=== PATIENT | female | born 1990 | race Caucasian/White ===

== ENCOUNTER 2016-07-16 20:38 | Emergency (ER) | payer OTHER ==
--- NOTE | ~2016-07-16 | CR63 ---
[facility] A Service of [facility] RADIOLOGY TEXT RESULTS PATIENT: ERWIN SSOA LOCATION: CFTX : 86 UNIT #: [id number] AGE: [address]: Uvaldo Adam MD SEX: F ORDER DR: [id number] [facility] [address] [place], [place] [address] [id number] E MR#: [id number] Acc #: [id number] NAME: ERWIN SOSA : 1990 SEX: F STUDY DATE/TIME: 07/16/2016 20:18 UNIT: [facility] ROOM: STUDY DESCRIPTION: CR Chest 2 View Attending Physician: Uvaldo Adam M.D. Ordering Physician: Uvaldo Adam M.D. Primary Care Physician: Julia Lees Aprn MEDICAL IMAGING REPORT This report is preliminary unless electronic signature is present EXAM 2 views chest HISTORY Back pain. 1 week. Cough, congestion, pain with cough. Smoking history 5 years plus. PA and lateral radiographs of the chest are presented. No comparisons. The bony structures are unremarkable. The heart and mediastinum are normal in size and contour. The lungs are well inflated and clear. No evidence of acute pulmonary disease, pleural effusion or pneumothorax. No suspicious nodule. Visualized upper abdomen normal. Dictated by... Milton Granados M.D. THIS IS AN ELECTRONICALLY VERIFIED REPORT Milton Granados M.D. at 07/18/2016 5:27 PM JESIKA/shoaib TD: 07/17/2016 10:29 JOB #: [id number] MEDICAL IMAGING REPORT COPY
== END 2016-07-16 20:54 | disposition home or self-care (01) ==
LOC: CFTX 20:38
DX: R05 Cough (principal); R07.89 Other chest pain; F17.210 Nicotine dependence, cigarettes, uncomplicated
CPT/HCPCS: 71020; 99283